=== PATIENT | male | born 1960 | race African-American/Black ===

== ENCOUNTER 2019-02-25 10:43 | Emergency (ER) | payer MEDICAID ==
[~2019-02-25] VITALS: Ht 170.2 cm; Wt 77.6 kg
[2019-02-25] MEDS ORDERED: QUET200T PO (11:01)
[2019-02-25] MEDS ORDERED: TRAZ-182 PO (11:01)
[2019-02-25] MEDS ORDERED: IBUP-1955 PO (11:01)
[2019-02-25] MEDS ORDERED: BUPR75TA21 PO (11:01)
[2019-02-25] MEDS ORDERED: METF-440 PO (11:01)
[2019-02-25] MEDS ORDERED: INSU100V28 SQ (11:01)
[2019-02-25 11:14] VITALS: BP 156/96
--- NOTE | 2019-02-25 11:16 | NUR ---
Patient BIBRA c/o chest pressure like pain x 1 year. On room air, breathing evenly and unlabored. Connected to the monitor and pulse ox. Kept comfortable, will continue to monitor accordingly.
--- NOTE | 2019-02-25 11:39 | NUR ---
CARE ENDORSED FROM YUMIKO FLORES. [facility] WITH [facility].
--- NOTE | 2019-02-25 12:30 | NUR ---
SPOKE WITH [place] FLORES AT [facility]. SHE STATES THAT PTS BGL HAS BEEN TRENDING UP WHICH IS ANOTHER REASON HE WAS TRANSFERRED. PER TRIAGE, THIS WAS NOT ENDORSED BY EMS TO ER STAFF OR MD. BGL CHECKED, 344. NOTIFIED DR CALDERON.
[2019-02-25] MEDS ORDERED: INSULIN REGULAR, HUMAN 100 UNIT/ML 10 ML VIAL ONE (12:33)
--- NOTE | 2019-02-25 12:48 | NUR ---
PROVIDED WITH DIABETIC LUNCH TRAY PER PT REQUEST
[2019-02-25] MEDS ORDERED: INSULIN REGULAR, HUMAN 100 UNIT/ML 10 ML VIAL SQ ONE (13:00)
[2019-02-25] MEDS ORDERED: IBUPROFEN 600 MG TABLET PO ONE ×2 (13:00→13:07)
--- NOTE | 2019-02-25 13:02 | NUR ---
PT C/O "SCREAMING PAIN", NOTIFIED MD AND VERBAL ORDER RECEIVED.
--- NOTE | 2019-02-25 13:20 | NUR ---
PT BEING VERBALLY COMBATIVE, STATING REPEATEDLY "I HAVE FULL BLOWN AIDS AND FULL BLOWN DIABETES. DON'T YOU THINK I'M IN BAD PAIN? SINCE I'M A BLACK MAN YOU ONLY GIVE ME MOTRIN". PT EDUCATED REPEATEDLY THAT NARCOTIC USE IS HIGHLY REGULATED AND THIS HAS NOTHING TO DO WITH RACE. SECURITY AT BEDSIDE. BGL [id number]. NOTIFIED .
--- NOTE | 2019-02-25 13:43 | NUR ---
PT DENIES SI OR HI. PT WISHES TO LEAVE, GIVEN DISCHARGE PAPERWORK BUT REFUSED TO SIGN. ARMBAND REMOVED AND PT LEFT ER WITH STEADY GAIT. Addendum: 02/25/19 at 1349 by HFOX REFUSED VS
== END 2019-02-25 13:49 | disposition home or self-care (01) ==
LOC: ER 10:46
DX: R07.89 Other chest pain (principal); F19.90 Other psychoactive substance use, unspecified, uncomplicated
CPT/HCPCS: 71045; 82962 ×2; 93005 ×2; 96372; 99284; J1815